=== PATIENT | male | born 1930 | race African-American/Black ===

== ENCOUNTER 2019-03-13 10:56 | Inpatient (IN) | payer OTHER ==
--- NOTE | 2019-03-13 11:44 | PDOC ---
Attending Attestation - Resident Resident Name: Lissette Ramos - ED Attending Attestation I have performed the following: I have examined & evaluated the patient, The case was reviewed & discussed with the resident, I agree w/resident's findings & plan, Exceptions are as noted - Medical Decision Making 03/13/19 11:44 I, Dr. Tyra Menendez, DO, attest that this document has been prepared under my direction and personally reviewed by me in its entirety. I further attest, that it accurately reflects all work, treatment, procedures and medical decision -making performed by me.
[2019-03-13 11:49] VITALS: BMI 25.9
[2019-03-13] MEDS ORDERED: SODIUM CHLORIDE 1,000 ML IV STA ×2 (11:52→13:28)
[2019-03-13 12:39] LABS: BASO % 0.8 % (0-2.0); EOS % 0.8 % (0-4.5); HEMATOCRIT 35.3 % (35.4-49); HEMOGLOBIN 11.1 GM/dL (11.7-16.9); LYMPH % 15.1 % (8-40); MCH 25.1 pg (25.7-33.7); MCHC 31.3 g/dl (32.0-35.9); MEAN CELL VOLUME 80.2 fl (80-96); MEAN PLT VOLUME 8.5 fl (7.5-11.1); MONO % 10.2 % (3.8-10.2); NEUT % 73.1 % (42.8-82.8); PLATELET COUNT 366 K/MM3 (134-434); WHITE BLOOD COUNT 7.6 K/mm3 (4.0-10.0)
--- NOTE | 2019-03-13 12:39 | PDOC ---
History of Present Illness - General Chief Complaint: Weakness Stated Complaint: Weakness Time Seen by Provider: 03/13/19 11:15 History Source: Patient, Care Provider Exam Limitations: Other (poor historian) - History of Present Illness Initial Comments: 03/13/19 12:33 *pt is poor historian. History obtained by pt and home office claims examiner Pt is an 88yo M with PMH of CAD s/p Bypass, Afib (on Apixaban), CHF, Pacemaker, DM, HTN presenting to ED with complaints of blurry vision x2 x2 days and lightheadedness today. transport aide states that she went to see pt this morning, pt had breakfast and stated he was feeling lightheaded. Per aide, pt started to look pale and thought he was going to pass out, she called EMS. Pt states that he has been having blurry vision for 2 days. Denies LOC, syncope, headache, numbness/tingling, limb weakness, abdominal pain, n/v/d, bloody stools, urinary symptoms, neck pain, painful eye movements, seeing spots, dizziness. BP taken by EMS was 60s systolic. BGM at home was in the 100s. Pt given 1L NS by EMS. Pt is not feeling as lightheaded anymore. Per aide, pt is at baseline mental status hodgson and with speech. His daughter doses his medications and places it in a pill organizer. PMD: [facility] PMH: see hpi Meds: see med rec Allergies: kevin Robert (daughter) [phone] Past History - Past Medical History Allergies/Adverse Reactions: Allergies Allergy/AdvReac Type Severity Reaction Status Date / Time No Known Allergies Allergy Verified 03/13/19 11:50 Home Medications: Ambulatory Orders Apixaban [Eliquis] 5 mg PO DAILY 03/13/19 Ascorbic Acid [Vitamin C] 500 mg PO DAILY 03/13/19 Brimonidine Tartrate [Alphagan P 0.1% -] 1 drop OU HS 03/13/19 Carvedilol 12.5 mg PO BID 03/13/19 Diltiazem HCl [Cartia Xt] 120 mg PO BID 03/13/19 Docusate Sodium [Dok] 100 mg PO DAILY PRN 03/13/19 Ferrous Sulfate 325 mg PO BID 03/13/19 Folic Acid 10 gm MC DAILY 03/13/19 Insulin Lispro [Humalog] 0 unit SQ TID PRN 03/13/19 Lisinopril 5 mg PO DAILY 03/13/19 Lisinopril [Prinivil] 5 mg PO DAILY 03/13/19 Metoclopramide HCl 10 mg PO TID 03/13/19 Montelukast Sodium [Singulair] 10 mg PO HS 03/13/19 Pantoprazole Sodium 40 mg PO DAILY 03/13/19 Pregabalin [Lyrica] 100 mg PO DAILY 03/13/19 Roflumilast [Daliresp -] 500 mcg PO HS 03/13/19 Rosuvastatin [Crestor -] 10 mg PO HS 03/13/19 Sitagliptin Phosphate [Januvia] 50 mg PO DAILY 03/13/19 Torsemide 20 mg PO DAILY 03/13/19 Umeclidinium [place] [Incruse Ellipta] 62.5 mcg IH DAILY 03/13/19 hydrALAZINE HCL [Apresoline -] 25 mg PO BID 03/13/19 Cardiac Disorders: Yes COPD: No Diabetes: Yes - Surgical History Cardiac Surgery: Yes - Suicide/Smoking/Psychosocial Hx Smoking History: Former smoker Have you smoked in the past 12 months: No If you are a former smoker, when did you quit?: 15 years ago Information on smoking cessation initiated: No Hx Alcohol Use: No Drug/Substance Use Hx: No Review of Systems - Review of Systems Constitutional: No: Chills, Fever, Weakness HEENTM: Yes: Blurred Vision. No: Tearing, Double Vision, Tinnitus, Hearing Loss , Difficulty Swallowing Respiratory: No: Cough, Shortness of Breath Cardiac (ROS): Yes: Lightheadedness. No: Chest Pain, Palpitations, Syncope ABD/GI: No: Constipated, Diarrhea, Nausea, Rectal Bleeding, Vomiting, Tarry Stools : No: Burning, Dysuria, Flank Pain, Hematuria Musculoskeletal: No: Back Pain, Joint Pain, Neck Pain Integumentary: No: Symptoms Reported Neurological: No: Headache, Numbness, Paresthesia, Tingling, Tremors, Weakness, Ataxia *Physical Exam - Vital Signs Last Vital Signs Temp Pulse Resp BP Pulse Ox 97.4 F L 64 18 72/48 L 94 L 03/13/19 11:22 03/13/19 11:00 03/13/19 11:00 03/13/19 11:00 03/13/19 11:22 - Physical Exam General Appearance: Yes: Nourished, Appropriately Dressed. No: Apparent Distress HEENT: positive: EOMI, [place]FF[place], Normal ENT Inspection Neck: positive: Trachea midline, Supple. negative: Lymphadenopathy (R), Lymphadenopathy (L) Respiratory/Chest: positive: Lungs Clear, Normal Breath Sounds. negative: Crackles, Rhonchi, Wheezing Cardiovascular: positive: Regular Rhythm, Regular Rate, S1, S2. negative: Edema , JVD, Murmur Vascular Pulses: Carotid (R): 2+, Carotid (L): 2+, Dorsalis-Pedis (R): 2+, Doralis-Pedis (L): 2+ Gastrointestinal/Abdominal: positive: Normal Bowel Sounds, Soft. negative: Tender Musculoskeletal: negative: CVA Tenderness Extremity: positive: Normal Capillary Refill. negative: Pedal Edema, Swelling Integumentary: positive: Normal Color, Dry, Warm Neurologic: positive: career representative II-XII NML intact, Fully Oriented, Alert, Normal Mood/ Affect, Normal Response, Motor Strength 03/27 ED Treatment Course - LABORATORY CBC & Chemistry Diagram: 03/13/19 18:13 03/13/19 18:13 - RADIOLOGY Radiology Studies Ordered: Category Date Time Status HEAD CT WITHOUT CONTRAST [CT] Stat CT Scan 03/13/19 11:51 Ordered CHEST X-RAY PORTABLE* [RAD] Stat Radiology 03/13/19 11:34 Completed Medical Decision Making - Medical Decision Making 03/13/19 12:39 Pt is an 88yo M with PMH of CAD s/p Bypass, Afib (on Apixaban), CHF, Pacemaker, DM, HTN presenting to ED with complaints of blurry vision x2 x2 days and lightheadedness today. transport aide states that she went to see pt this morning, pt had breakfast and stated he was feeling lightheaded. Per aide, pt started to look pale and thought he was going to pass out, she called EMS. Pt states that he has been having blurry vision for 2 days. Denies LOC, syncope, headache, numbness/tingling, limb weakness, abdominal pain, n/v/d, bloody stools, urinary symptoms, neck pain, painful eye movements, seeing spots, dizziness. BP taken by EMS was 60s systolic. BGM at home was in the 100s. Pt given 1L NS by EMS. Pt is not feeling as lightheaded anymore. Per aide, pt is at baseline mental status hodgson and with speech. His daughter in law doses his medications and places it in a pill organizer. Vitals: hypotensive (70s/40s), normocardic, afebrile, saturating well on RA PE: appears comfortable, lungs cta, normal heart sounds, AOx3, no neurological deficits Ddx includes but not limited to shock (infectious v. hypovolemic v. cardiogenic) , medication interactions/overdose/side effect, metabolic/electrolyte abnormality -sepsis w/u -iv fluids -ct head, ekg, cxr cxr: no acute pathology ekg: paced rhythm, no jordana or depressions, underlying afib labs: significant for cr 2.7 (do not have baseline to compare to). All other labs wnl. bp increased to 90s systolic. Will give another L of fluids. No signs of fluid overload. -urine lytes added. CT head: no acute pathology due to hypotension and deni, will admit pt to hospitalist. *DC/Admit/Observation/Transfer Diagnosis at time of Disposition: DENI (acute kidney injury) Hypotension Qualifiers: Hypotension type: unspecified hypotension type Qualified Code(s): I95.9 - Hypotension, unspecified - Discharge Dispostion Decision to Admit order: Yes - Referrals - Patient Instructions - Post Discharge Activity
[2019-03-13 12:46] LABS: VENOUS PC02 51.4 mmHg (41-51); VENOUS PH 7.36 (7.31-7.41); VENOUS PO2 36.2 mmHg (30-40)
--- NOTE | 2019-03-13 12:55 | EKG ---
Test Reason : Blood Pressure : / mmHG Vent. Rate : 060 BPM Atrial Rate : 326 BPM P-R Int : 000 ms QRS Dur : 196 ms QT Int : 490 ms P-R-T Axes : 000 -64 069 degrees QTc Int : 490 ms Ventricular-paced rhythm ABNORMAL ECG Confirmed by MD GEOVANNI, LUIS ARMANDO ([id number]) on 03/13/2019 12:55:42 PM Referred By: Confirmed By:LUIS ARMANDO GALARZA MD
[2019-03-13 13:03] LABS: INR 1.74 (0.83-1.09); PROTHROMBIN TIME (PATIENT) 20.6 SEC (9.7-13.0)
[2019-03-13 13:05] LABS: ALBUMIN 2.4 g/dl (3.4-5.0); ALK PHOS 82 U/L (45-117); ANION GAP 5 MMOL/L (8-16); BILIRUBIN,TOTAL 0.3 mg/dL (0.2-1); BLOOD UREA NITROGEN 55 mg/dL (7-18); CALCIUM 8.2 mg/dL (8.5-10.1); CHLORIDE 105 mmol/L (98-107); CO2 29 mmol/L (21-32); CREATININE 2.7 mg/dL (0.55-1.3); GLUCOSE,RANDOM 138 mg/dL (74-106); MAGNESIUM 2.1 mg/dL (1.8-2.4); SGOT/AST 13 U/L (15-37); SGPT/ALT 8 U/L (13-61); SODIUM 139 mmol/L (136-145); TOT PROT 6.5 g/dl (6.4-8.2)
[2019-03-13 13:06] LABS: ACTIVATED PTT 39.9 SECONDS (25.2-36.5)
--- NOTE | 2019-03-13 14:04 | PDOC ---
Documentation entered by Jo Ann Bal SCRIBE, acting as scribe for Tyra Menendez DO. Tyra Menendez DO: This documentation has been prepared by the Valeriano cervantes Daisy, SCRIBE, under my direction and personally reviewed by me in its entirety. I confirm that the documentation accurately reflects all work, treatment, procedures, and medical decision making performed by me. Attending Attestation - Resident Resident Name: Lissette Ramos - ED Attending Attestation I have performed the following: I have examined & evaluated the patient, The case was reviewed & discussed with the resident, I agree w/resident's findings & plan - HPI HPI: 03/13/19 12:25 The patient is a 88 YOM with PMH of afib, CHF, CAD, bypass, HTN, DM, and s/p pacemaker who presents to the ED from home with blurred vision and lightheadedness for the past 2 days. Family member makes his pill box every week, which he takes on his own. He is normally seen at [facility]. Patient arrived to the ED hypotensive to the 70s/40s. He states he has a bowel movement every week, which is normal for him. Patient is a poor historian. - Physicial Exam PE: 03/13/19 12:31 ADULT PHYSICAL EXAM Constitutional: awake, alert, knows location; home health aid at bedside Cardiovascular: Regular rate. Regular rhythm. S1, S2 regular. Distal pulses are 2+ and symmetric. (+) left chest wall with a pacemaker Pulmonary/Chest: No evidence of respiratory distress. Clear to auscultation bilaterally No wheezing, rales or rhonchi. Abdominal: Soft and non-distended. There is no tenderness. No rebound, guarding or rigidity. No organomegaly. No palpable masses. Good bowel sounds. Musculoskeletal: No edema. Full range of motion in all extremities. Skin: Skin is warm and dry. Neurological: (+) garbled speech, stuttering speech at baseline. no focal deficits. - Medical Decision Making 03/13/19 12:48 I, Dr. Tyra Menendez DO, attest that this document has been prepared under my direction and personally reviewed by me in its entirety. I further attest, that it accurately reflects all work, treatment, procedures and medical decision -making performed by me. 03/13/19 12:48 a/p: 88yo male biba from home for eval of hypotension, lightheadedness, and blurred vision -bp low at home and in the ED -pt denies change in meds, pt states meds in a pill box and he takes his pills as they are set -pt normally goes to [facility] -pt denies f/c/cp/sob/abd pain/n/v/d/dysuria -pt with pacer, neuro intact other than garbled speech which the home health aide states is normal and decreased vision b/l -lightheaded feeling improved after 1L ivf hydration given by medics -concern for hyptoension, will send labs, cultures (however no symptoms for infection), lactate -ekg, head ct, ua -will continue ivf hydration -bedside ultrasound show decreased EF, no pericardial effusion, no b lines in apex of lungs, pacer wire to RV -will continue to monitor 03/13/19 14:04 resident discussed the case with REX who accepts pt to service Heart Score/ECG Review - ECG Intrepretation Comment:: 03/13/19 12:52 paced at 60, underlying afib, no acute changes
[2019-03-13 14:11] LABS: EPI CELLS 1.9 /HPF (0-5/HPF); URINE APPEARANCE CLOUDY; URINE BACTERIA 0.8 /hpf (NEGATIVE); URINE BILIRUBIN NEGATIVE (NEGATIVE); URINE CASTS 23 /lpf (0-8); URINE COLOR YELLOW; URINE GLUCOSE (UA) NEGATIVE (NEGATIVE); URINE KETONE TRACE (NEGATIVE); URINE LEUK ESTERASE TRACE (NEGATIVE); URINE NITRITE NEGATIVE (NEGATIVE); URINE PROTEIN NEGATIVE (NEGATIVE); URINE RBC 360 /hpf (0-4); URINE UROBILINOGEN 0.2 mg/dL (0.2-1.0); URINE WBC 1 /hpf (0-5)
--- NOTE | 2019-03-13 16:59 | HP ---
Admitting History and Physical - Primary Care Physician PCP: Dr. Shanks - Admission Chief Complaint: Feeling lightheaded with vision changes over past 5 days History of Present Illness: Patient is an 88 yo M with PMHx of COPD, CHF w/ unclear EF, s/p PPM, Afib on Eliquis, CAD s/p CABG ~ 10 yrs ago at [facility], IDDM c/b gastroparesis & neuropathy , HTN, & prostate issues followed by Dr. Valles for which he receives monthly injections with unclear medication(? zoladex) who presents after feeling that he has been having some feeling of lightheadedness & vision changes over the past 5 days. Per pt & verified by family at bedside pt typically follows at [facility] outpt clinic, last seen post [facility] about 1 month ago @ [facility] for epistaxis which was attributed to eliquis and pt had been discharged to a SNF/ inpt rehab to improve gait/ mobility and then returned home 2 weeks ago where he lives with & has daily INTERMISSION COORDINATOR services. Pt reported to be back to baseline health until about 4-5 days ago he began reporting some blurry vision, not improved w/ use of his prescription glasses as well as feeling of being lightheaded. Pt had resumed use of all regular medicaitons inlcuding elqiuis BID though did not have any abnormal bruising or bleeding. He otherwise reports no fevers, chills, N/V/D, has variable appetite but no significant weight loss & per family had very good appetite & nutrition intake while at inpt rehab 3 weeks ago. Pt reports taking all his meds this morning prior to being brought by EMS to ED and denies any forgetfullness, focal weakness, sensory loss in extremities, aphasia, dysphagia and no falls, head trauma or pain in eyes though has persistent feeling of blurred vision. Per review of med list pt is on 4 anti HTN meds + torsemide diuretic daily and is on several meds for control of his COPD, attributed to remote hx of smoking tobacco. Pt reports having recieved flu vaccine this year and got Pneumovax in 2010. Per family home glucose has been largely well controlled in past 2 weeks < 200 and at time of interview in ED pt reportedly appears to be at his baseline mentation status. ON arrival to ED via EMS pt was noted to be hypotensive to 60/40's and 70's/40' s on initial ED measurement, given 2 L of IV bolus, not improved to ~ 90/60mmhg is ventricularly paced by PPM and spo2 ~ 88-90% on RA. History Source: Patient, Family Member - Past Medical History Cardiovascular: Yes: AFIB, CAD, CHF, HTN, Hyperlipdemia Pulmonary: Yes: COPD Gastrointestinal: Yes: Other (gastroparesis) Renal/: Yes: Other (unclear prostate disease ? BPH vs prostate CA- follows with Dr. Valles) Endocrine: Yes: Diabetes Mellitus (complicated by gastroparesis & neuropathy) - Past Surgical History Past Surgical History: Yes: CABG - Smoking History Smoking history: Former smoker Have you smoked in the past 12 months: No If you are a former smoker, when did you quit?: 15 years ago - Alcohol/Substance Use Hx Alcohol Use: No History of Substance Use: reports: None - Social History Usual Living Arrangement: Yes: Alone (as Home health aid from 9-4:30PM on weekdays & 9-2PM on weekends), With Spouse (also has home jm aid) ADL: Support Services Occupation: retired History of Recent Travel: No Other Social History: ambulates w/ aid of rolling walker Home Medications - Allergies Allergies/Adverse Reactions: Allergies Allergy/AdvReac Type Severity Reaction Status Date / Time No Known Allergies Allergy Verified 03/13/19 11:50 - Home Medications Home Medications: Ambulatory Orders Apixaban [Eliquis] 5 mg PO DAILY 03/13/19 Ascorbic Acid [Vitamin C] 500 mg PO DAILY 03/13/19 Brimonidine Tartrate [Alphagan P 0.1% -] 1 drop OU HS 03/13/19 Carvedilol 12.5 mg PO BID 03/13/19 Diltiazem HCl [Cartia Xt] 120 mg PO BID 03/13/19 Docusate Sodium [Dok] 100 mg PO DAILY PRN 03/13/19 Ferrous Sulfate 325 mg PO BID 03/13/19 Folic Acid 10 gm MC DAILY 03/13/19 Insulin Lispro [Humalog] 0 unit SQ TID PRN 03/13/19 Lisinopril 5 mg PO DAILY 03/13/19 Lisinopril [Prinivil] 5 mg PO DAILY 03/13/19 Metoclopramide HCl 10 mg PO TID 03/13/19 Montelukast Sodium [Singulair] 10 mg PO HS 03/13/19 Pantoprazole Sodium 40 mg PO DAILY 03/13/19 Pregabalin [Lyrica] 100 mg PO DAILY 03/13/19 Roflumilast [Daliresp -] 500 mcg PO HS 03/13/19 Rosuvastatin [Crestor -] 10 mg PO HS 03/13/19 Sitagliptin Phosphate [Januvia] 50 mg PO DAILY 03/13/19 Torsemide 20 mg PO DAILY 03/13/19 Umeclidinium [place] [Incruse Ellipta] 62.5 mcg IH DAILY 03/13/19 hydrALAZINE HCL [Apresoline -] 25 mg PO BID 03/13/19 Family Disease History - Family Disease History Family History: Unremarkable Review of Systems - Review of Systems Constitutional: reports: Lethargy Eyes: reports: Blurred Vision, Double Vision HENT: reports: No Symptoms Neck: reports: No Symptoms Cardiovascular: reports: No Symptoms Respiratory: reports: No Symptoms Gastrointestinal: reports: No Symptoms Genitourinary: reports: No Symptoms Neurological: reports: No Symptoms Endocrine: reports: No Symptoms Hematology/Lymphatic: reports: No Symptoms Psychiatric: reports: No Symptoms Physical Examination Vital Signs: Vital Signs Temperature 97.4 F L 03/13/19 11:22 Pulse Rate 69 03/13/19 13:20 Respiratory Rate 17 03/13/19 13:20 Blood Pressure 95/60 03/13/19 13:20 O2 Sat by Pulse Oximetry (%) 94 L 03/13/19 11:22 Findings/Remarks: Gen: pt is a pleasant elderly male in no distress, breathing comfrotably on room air and speaking in full sentences, AAox3 HEENT: EOMI, PERRLA, MMM, no scleral pallor or icterus, no sinus tenderness, no TMJ tenderness, no pain w/ eye movement or light shining Neck: no JVD, no cervical LAD Chest: + healed sternotomy scar, PPM in place,no palpable effusions, hematoma CVS: Reg, not tachy, s1 &S2 nrml, no murmurs or rubs CTA b/l: distant breath sounds heard throughout, no wheezes, rales or rhonchi Abd: Soft, NT, ND, normoactive BS, no palpable hepatomegaly, abd bruits or suprapubic mass Ext: warm, well perfsued, 2+ radial &DP pulses b/l no LE edema Skin: slightly dry but not iceteric, no rashes or bruising noted Labs: CBC, BMP 03/13/19 12:27 03/13/19 12:27 Imaging - Results Chest X-ray: Report Reviewed EKG: Report Reviewed Problem List - Problems (1) Heart failure Assessment/Plan: - pt wtih PMHx of CHF presumed systolic w reduced EF but no prior cardiology records available, pt s/p PPM & is vernacularly paced - on volume exam does not appear hypervolemic - would place on tele monitoring given extensive cardiac hx and obtain additional outpt records when Dr. Acosta- supervisor airplane flight attendant office is open this week -would obtain formal Echo - given lack of clear volume overload with initial hypotension would hold antiHTN meds for now and resume gradually, startign likely w/ carvedilol though at reduced dose(liekly 3.125 BID) and titrate up - given hx of HF would proceed w/ gentle IVF challenge to avoid precipiting pulm edema/ HF exacerbation - hold NATHALIA-I for now given elevated SCr & hold torsemide - place on cardiac, low sodium diet Code(s): I50.9 - HEART FAILURE, UNSPECIFIED (2) COPD (chronic obstructive pulmonary disease) Assessment/Plan: - pt with significant COPD hx of mutliple home agents including: Incruse ellipta 62.5mg, singulair 10mg, Daliresp(PDE-4 inhibitor), suspected for pulm HTN -keep nasal cannula on standby and maintain goal spo2 btween 88-92% - resume singulair 10mg, place on PRN duo nebs - pt will require NF daliresp & ellipta Code(s): J44.9 - CHRONIC OBSTRUCTIVE PULMONARY DISEASE, UNSPECIFIED (3) BPH NOS w/o ur obs/LUTS Assessment/Plan: - will need to obtain additional info from outpt urologist Dr Valles about Rx and monthly injections - monitor UOP, f/up on UA and get renal/bladder US to r/o obstructive cause of elevated SCr w/ unclear baseline Code(s): N40.0 - BENIGN PROSTATIC HYPERPLASIA WITHOUT LOWER URINRY TRACT SYMP (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 Man Code(s): E11.8 - TYPE 2 DIABETES MELLITUS WITH UNSPECIFIED COMPLICATIONS; Z79.4 - FPC (CURRENT) USE OF INSULIN (5) Coronary arteriosclerosis after coronary artery bypass grafting Assessment/Plan: - pt with hx of CAD s/p prior CABG, will need to obtain outside cards records during the week from Dr. Acosta ([phone]) - c/w eliquis but at 2.5mg BID for now, pt not on home ASA per family & med list - 1st set of troponins in ED non elevated, low suspicion for ACS event but will trend serially to definitively rule out given hypotension - c/w rosuvastatin 10mg qhs Code(s): I25.810 - ATHEROSCLEROSIS OF CABG W/O ANGINA PECTORIS (6) Dyslipidemia Assessment/Plan: - check lipid panel & continue rosuvastatin 10mg qhS Code(s): E78.5 - HYPERLIPIDEMIA, UNSPECIFIED (7) Iron deficiency anemia Assessment/Plan: - pt on home iron, presently Hgb is at target - repeat iron studies/ ferritin and determine resumption/continuation of PO iron Code(s): D50.9 - IRON DEFICIENCY ANEMIA, UNSPECIFIED (8) DENI (acute kidney injury) Assessment/Plan: - pt w/ unclear baslien SCr, was 1.1 in 2010, hx of prostate disease raises concern for obstruction though with noted hypotension hemodynamic insult or ischemic ATN high on differential - will need to obtain records of recent labs from [facility] ([phone] ) when re-opens thursday for baseline renal function determination - will hold NATHALIA-I and torsemide at this time and monitor volume status including lungs closely after IVF challenge for management of hypotension - maintain goal MAP > 65 for renal perfusion - avoid NSAIDs, and IV contrast - dose meds for CrCl <25 - UA w/ macro & microscopic hematuria, no significant leukocytosis, ? related to prostate disease vs glomerulonephritis - ordered renal/bladder US to further assess for any anatomic abnormalities, r/ o pyelo, nephrolithiasis, cystitis, hydronephrosis - will send VitD, PTH, phos, iron, ferritin- indirect markers that could indicate pre-existing CKD Code(s): N17.9 - ACUTE KIDNEY FAILURE, UNSPECIFIED (9) Hypotension Assessment/Plan: - pt presently appears euvolemic, hypotensive thus potentially related to over medication given use of 5 anti-HTN/vasoactive agents including diuretics - initial lactate not markedly elevated - pt w/ no elevation of WBC or fevers, f/up on BCx & UCx drawn in ED but no present indicaiton for empiric Abx, though low threshold in event of fever spike - pt s/p 2L IVF will monitor BPs closely, goal MAP btween 65-75 - obtain echo to assess for e/o severe wall motion abnormalities to explain hypotension Code(s): I95.9 - HYPOTENSION, UNSPECIFIED Qualifiers: Hypotension type: unspecified hypotension type Qualified Code(s): I95.9 - Hypotension, unspecified (10) Double vision Assessment/Plan: -pt with no obvious visual field deficits, no pain with eye movement to suggest acute thrombosis and no reported abnromalities per CTH - will place consult for formal ophtho eval - pt uses alphagan 0.1% drops at home, will resume Code(s): H53.2 - DIPLOPIA (11) Prophylactic measure Assessment/Plan: - pt on systemic AC w/ eliquis Code(s): Z29.9 - ENCOUNTER FOR PROPHYLACTIC MEASURES, UNSPECIFIED
[2019-03-13] MEDS ORDERED: HEPARIN NA (PORCINE) 5,000 UNITS/ML 1ML VIAL SQ SCH (18:00)
[2019-03-13 18:28] LABS: EOS % 0.8 % (0-4.5); HEMATOCRIT 38.8 % (35.4-49); LYMPH % 20.4 % (8-40); MCH 25.1 pg (25.7-33.7); MEAN CELL VOLUME 80.9 fl (80-96); MEAN PLT VOLUME 8.3 fl (7.5-11.1); MONO % 9.9 % (3.8-10.2); NEUT % 67.9 % (42.8-82.8); PLATELET COUNT 375 K/MM3 (134-434); RBC 4.79 M/mm3 (4.00-5.60); RDW 18.1 % (11.9-15.9); WHITE BLOOD COUNT 8.6 K/mm3 (4.0-10.0)
[2019-03-13 19:02] LABS: ALBUMIN 2.6 g/dl (3.4-5.0); ALK PHOS 93 U/L (45-117); ANION GAP 6 MMOL/L (8-16); BILIRUBIN,TOTAL 0.2 mg/dL (0.2-1); BLOOD UREA NITROGEN 51 mg/dL (7-18); CALCIUM 8.4 mg/dL (8.5-10.1); CHLORIDE 107 mmol/L (98-107); CO2 29 mmol/L (21-32); CREATININE 2.2 mg/dL (0.55-1.3); GLUCOSE,RANDOM 101 mg/dL (74-106); MAGNESIUM 2.4 mg/dL (1.8-2.4); PHOSPHOROUS 4.2 mg/dL (2.5-4.9); POTASSIUM 4.4 mmol/L (3.5-5.1); SGOT/AST 9 U/L (15-37); SGPT/ALT 10 U/L (13-61); SODIUM 142 mmol/L (136-145); TOT PROT 7.1 g/dl (6.4-8.2)
[2019-03-13] MEDS ORDERED: HEPARIN NA (PORCINE) 5,000 UNITS/ML 1ML VIAL ONE (19:07)
[2019-03-13] MEDS ORDERED: PT OWN MED DRAWER 7, Y5N ONE (22:07)
[2019-03-13] MEDS: PREGABALIN 25 MG CAPSULE PO SCH (22:38)
[2019-03-13] MEDS: METOCLOPRAMIDE HCL 10 MG TABLET (FP) PO SCH (22:38)
[2019-03-13] MEDS: ROSUVASTATIN CA 10 MG TABLET (FP) PO SCH (22:38)
[2019-03-13] MEDS: MONTELUKAST NA 10 MG TABLET PO SCH (22:38)
[2019-03-13] MEDS: APIXABAN 2.5 MG TABLET PO SCH (22:38)
[2019-03-13] MEDS: BRIMONIDINE TARTRATE 0.1% OPHTHALMIC 5 ML BOTTLE OU SCH (22:45)
[2019-03-14 02:30] LABS: EPI CELLS 0.4 /HPF (0-5/HPF); URINE APPEARANCE CLOUDY; URINE BACTERIA 0.8 /hpf (NEGATIVE); URINE BILIRUBIN NEGATIVE (NEGATIVE); URINE CASTS 1 /lpf (0-8); URINE COLOR ORANGE; URINE GLUCOSE (UA) NEGATIVE (NEGATIVE); URINE KETONE NEGATIVE (NEGATIVE); URINE LEUK ESTERASE TRACE (NEGATIVE); URINE NITRITE NEGATIVE (NEGATIVE); URINE PROTEIN TRACE (NEGATIVE); URINE RBC 1382 /hpf (0-4); URINE UROBILINOGEN 0.2 mg/dL (0.2-1.0); URINE WBC 6 /hpf (0-5)
[2019-03-14] MEDS: ACETAMINOPHEN 500 MG TABLET (FP) PO PRN ×2 (04:25→23:31)
[2019-03-14] MEDS: INSULIN SLIDING SCALE (NOVOLOG) 1 VIAL SQ SCH ×2 (06:46→16:08)
[2019-03-14] MEDS: METOCLOPRAMIDE HCL 10 MG TABLET (FP) PO SCH ×4 (06:46→21:43)
[2019-03-14 06:48] LABS: INR 1.44 (0.83-1.09); PROTHROMBIN TIME (PATIENT) 17.1 SEC (9.7-13.0)
[2019-03-14 06:51] LABS: ACTIVATED PTT 38.9 SECONDS (25.2-36.5)
[2019-03-14 07:14] LABS: N-TERMINAL BNP 1444.7 pg/ml (5-450)
[2019-03-14] MEDS ORDERED: PT OWN MED DRAWER 7, Y5N ONE ×2 (09:07→11:35)
[2019-03-14] MEDS ORDERED: PANTOPRAZOLE SOD 40 MG SUSPENSION PACKET PO SCH (10:00)
[2019-03-14] MEDS: BRIMONIDINE TARTRATE 0.1% OPHTHALMIC 5 ML BOTTLE OU SCH (11:01)
[2019-03-14] MEDS: ASCORBIC ACID 500 MG TABLET (FP) PO SCH (11:02)
[2019-03-14] MEDS: FOLIC ACID 1 MG TABLET (FP) PO SCH (11:02)
[2019-03-14] MEDS: APIXABAN 2.5 MG TABLET PO SCH ×2 (11:02→21:44)
[2019-03-14] MEDS: UMECLIDINIUM/VILANTEROL (ANORO) 62.5/25 MCG INHALER IH SCH (11:48)
[2019-03-14 13:02] LABS: BASO % 1.2 % (0-2.0); EOS % 0.7 % (0-4.5); HEMATOCRIT 38.6 % (35.4-49); LYMPH % 16.2 % (8-40); MCH 25.1 pg (25.7-33.7); MCHC 31.1 g/dl (32.0-35.9); MEAN CELL VOLUME 80.9 fl (80-96); MEAN PLT VOLUME 8.5 fl (7.5-11.1); MONO % 8.7 % (3.8-10.2); NEUT % 73.2 % (42.8-82.8); PLATELET COUNT 410 K/MM3 (134-434); RBC 4.78 M/mm3 (4.00-5.60); RDW 17.9 % (11.9-15.9); WHITE BLOOD COUNT 6.8 K/mm3 (4.0-10.0)
[2019-03-14] MEDS: PANTOPRAZOLE 40 MG TABLET (FP) PO SCH (13:20)
[2019-03-14 13:35] LABS: ALBUMIN 2.6 g/dl (3.4-5.0); ALK PHOS 76 U/L (45-117); ANION GAP 6 MMOL/L (8-16); BILIRUBIN,TOTAL 0.5 mg/dL (0.2-1); BLOOD UREA NITROGEN 40 mg/dL (7-18); CALCIUM 9.1 mg/dL (8.5-10.1); CHLORIDE 108 mmol/L (98-107); CO2 29 mmol/L (21-32); CREATININE 1.4 mg/dL (0.55-1.3); GLUCOSE,RANDOM 154 mg/dL (74-106); MAGNESIUM 2.2 mg/dL (1.8-2.4); POTASSIUM 4.6 mmol/L (3.5-5.1); SGOT/AST 7 U/L (15-37); SGPT/ALT 9 U/L (13-61); SODIUM 144 mmol/L (136-145); TOT PROT 7.1 g/dl (6.4-8.2)
--- NOTE | 2019-03-14 14:19 | EKG ---
Test Reason : Blood Pressure : / mmHG Vent. Rate : 088 BPM Atrial Rate : 300 BPM P-R Int : 000 ms QRS Dur : 112 ms QT Int : 350 ms P-R-T Axes : 000 -55 007 degrees QTc Int : 423 ms ATRIAL FIBRILLATION LEFT ANTERIOR FASCICULAR BLOCK SEPTAL INFARCT , AGE UNDETERMINED ABNORMAL ECG WHEN COMPARED WITH ECG OF 13-MAR-2019 12:02, ATRIAL FIBRILLATION HAS REPLACED ELECTRONIC VENTRICULAR PACEMAKER Confirmed by MAURISIO HUMPHREYS, ASUNCION ([id number]) on 03/14/2019 2:19:19 PM Referred By: CRUZ MCNULTY DR Confirmed By:ASUNCION FORDE MD
--- NOTE | 2019-03-14 16:11 | PN ---
Physical Exam: SUBJECTIVE: Patient seen and examined at the bedside. sitting in chair. family was not at the bedside. OBJECTIVE: Vital Signs Period Temp Pulse Resp BP Sys/Farmer Pulse Ox Last 24 Hr 97.7 F-98.6 F 85-89 18-20 112-130/62-69 94-96 GENERAL: The patient is awake, alert, in no acute distress. HEAD: Normal with no signs of trauma. EYES: PERRL, extraocular movements intact, sclera anicteric, conjunctiva clear. No ptosis. ENT: Ears normal, nares patent, oropharynx clear without exudates NECK: Trachea midline, full range of motion, supple. LUNGS: Breath sounds equal, clear to auscultation bilaterally HEART: paced rhythm ABDOMEN: Soft, nontender, nondistended, normoactive bowel sounds, no guarding EXTREMITIES: no edema. NEUROLOGICAL: garbled speech,stuttering speech (per admission note, speech at baseline) gait not observed. PSYCH: Normal mood, normal affect. SKIN: Warm, dry, normal turgor, no rashes or lesions noted Laboratory Results - last 24 hr 03/13/19 03/13/19 03/14/19 18:13 18:13 01:17 WBC 8.6 RBC 4.79 Hgb 12.0 Hct 38.8 MCV 80.9 MCH 25.1 L MCHC 31.0 L RDW 18.1 H Plt Count 375 MPV 8.3 Absolute Neuts (auto) 5.8 Neutrophils % 67.9 Lymphocytes % 20.4 D Monocytes % 9.9 Eosinophils % 0.8 Basophils % 1.0 Nucleated RBC % 0 PT with INR INR PTT (Actin FS) Sodium 142 Potassium 4.4 Chloride 107 Carbon Dioxide 29 Anion Gap 6 L BUN 51 H Creatinine 2.2 H Creat Clearance w eGFR 28.39 POC Glucometer Random Glucose 101 Calcium 8.4 L Phosphorus 4.2 Magnesium 2.4 Total Bilirubin 0.2 AST 9 L ALT 10 L Alkaline Phosphatase 93 Troponin I < 0.02 B-Natriuretic Peptide Total Protein 7.1 Albumin 2.6 L TSH Resin T3 Uptake Urine Color [place] Urine Appearance Cloudy Urine pH 5.0 Ur Specific [place] 1.012 Urine Protein Trace Urine Glucose (UA) Negative Urine Ketones Negative Urine Blood 3+ H Urine Nitrite Negative Urine Bilirubin Negative Urine Urobilinogen 0.2 Ur Leukocyte Esterase Trace Urine WBC (Auto) 6 Urine RBC (Auto) 1382 Urine Casts (Auto) 1 U Epithel Cells (Auto) 0.4 Urine Bacteria (Auto) 0.8 03/14/19 03/14/19 03/14/19 05:30 05:30 06:44 WBC RBC Hgb Hct MCV MCH MCHC RDW Plt Count MPV Absolute Neuts (auto) Neutrophils % Lymphocytes % Monocytes % Eosinophils % Basophils % Nucleated RBC % PT with INR 17.10 H INR 1.44 H PTT (Actin FS) 38.9 H Sodium Potassium Chloride Carbon Dioxide Anion Gap BUN Creatinine Creat Clearance w eGFR POC Glucometer 97 Random Glucose Calcium Phosphorus Magnesium Total Bilirubin AST ALT Alkaline Phosphatase Troponin I B-Natriuretic Peptide 1444.7 H Total Protein Albumin TSH 0.41 D Resin T3 Uptake 40.9 H Urine Color Urine Appearance Urine pH Ur Specific [place] Urine Protein Urine Glucose (UA) Urine Ketones Urine Blood Urine Nitrite Urine Bilirubin Urine Urobilinogen Ur Leukocyte Esterase Urine WBC (Auto) Urine RBC (Auto) Urine Casts (Auto) U Epithel Cells (Auto) Urine Bacteria (Auto) 03/14/19 03/14/19 03/14/19 11:53 12:43 12:43 WBC 6.8 RBC 4.78 Hgb 12.0 Hct 38.6 MCV 80.9 MCH 25.1 L MCHC 31.1 L RDW 17.9 H Plt Count 410 MPV 8.5 Absolute Neuts (auto) 5.0 Neutrophils % 73.2 Lymphocytes % 16.2 D Monocytes % 8.7 Eosinophils % 0.7 Basophils % 1.2 Nucleated RBC % 0 PT with INR INR PTT (Actin FS) Sodium 144 Potassium 4.6 Chloride 108 H Carbon Dioxide 29 Anion Gap 6 L BUN 40 H Creatinine 1.4 H Creat Clearance w eGFR 47.83 POC Glucometer 112 Random Glucose 154 H Calcium 9.1 Phosphorus Magnesium 2.2 Total Bilirubin 0.5 AST 7 L ALT 9 L Alkaline Phosphatase 76 Troponin I B-Natriuretic Peptide Total Protein 7.1 Albumin 2.6 L TSH Resin T3 Uptake Urine Color Urine Appearance Urine pH Ur Specific [place] Urine Protein Urine Glucose (UA) Urine Ketones Urine Blood Urine Nitrite Urine Bilirubin Urine Urobilinogen Ur Leukocyte Esterase Urine WBC (Auto) Urine RBC (Auto) Urine Casts (Auto) U Epithel Cells (Auto) Urine Bacteria (Auto) 04/22/19 16:06 WBC RBC Hgb Hct MCV MCH MCHC RDW Plt Count MPV Absolute Neuts (auto) Neutrophils % Lymphocytes % Monocytes % Eosinophils % Basophils % Nucleated RBC % PT with INR INR PTT (Actin FS) Sodium Potassium Chloride Carbon Dioxide Anion Gap BUN Creatinine Creat Clearance w eGFR POC Glucometer 123 Random Glucose Calcium Phosphorus Magnesium Total Bilirubin AST ALT Alkaline Phosphatase Troponin I B-Natriuretic Peptide Total Protein Albumin TSH Resin T3 Uptake Urine Color Urine Appearance Urine pH Ur Specific [place] Urine Protein Urine Glucose (UA) Urine Ketones Urine Blood Urine Nitrite Urine Bilirubin Urine Urobilinogen Ur Leukocyte Esterase Urine WBC (Auto) Urine RBC (Auto) Urine Casts (Auto) U Epithel Cells (Auto) Urine Bacteria (Auto) Active Medications Generic Name Dose Route Start Last Admin Trade Name Freq PRN Reason Stop Dose Admin Acetaminophen 1,000 mg 03/14/19 03:48 03/14/19 04:25 Tylenol - PO 1,000 mg BID PRN Administration PAIN Apixaban 2.5 mg 03/13/19 22:00 03/14/19 11:02 Eliquis - PO 2.5 mg BID JULIÁN Administration Ascorbic Acid 500 mg 03/14/19 10:00 03/14/19 11:02 Vitamin C - PO 500 mg DAILY JULIÁN Administration Brimonidine Tartrate 1 drop 03/13/19 22:00 03/14/19 11:01 Alphagan P 0.1% - OU 1 drop DAILY JULIÁN Administration Folic Acid 1 mg 03/14/19 10:00 03/14/19 11:02 Folic Acid - PO 1 mg DAILY JULIÁN Administration Insulin Aspart 1 vial 03/14/19 07:00 03/14/19 16:08 Novolog Vial Sliding Scale - SQ Not Given BIDAC [facility] Protocol Metoclopramide HCl 10 mg 03/13/19 22:00 03/14/19 11:48 Reglan - PO 10 mg ACHS JULIÁN Administration Montelukast Sodium 10 mg 03/13/19 22:00 03/13/19 22:38 Singulair - PO 10 mg HS JULIÁN Administration Pantoprazole Sodium 40 mg 03/14/19 12:30 03/14/19 13:20 Protonix - PO 40 mg DAILY JULIÁN Administration Pregabalin 25 mg 03/13/19 22:00 03/13/19 22:38 Lyrica - PO 25 mg HS JULIÁN Administration Rosuvastatin Calcium 10 mg 03/13/19 22:00 04/21/19 22:38 Crestor - PO 10 mg HS JULIÁN Administration Umeclidinium/Vilanterol 1 puff 03/14/19 10:00 03/14/19 11:48 Anoro Ellipta 62.5-25 Mcg Inh IH 1 puff DAILY JULIÁN Administration ASSESSMENT/PLAN: Patient is an 88 year old male with a significant past medical history of atrial fibrillation, CHF, CAD, bypass, hypertension, diabetes, s/p pacemaker who presents to the ED from home with blurred vision and episodes of lightheadness for the past two days. Patient takes his own medications at home from a pill box prepared by his family. He arrived in the ED with hypotension 70s/40s and a creatinine of 2.7. Based on 2010 labs, patient's creatinine is ~ 1.1. In the ED he was given a liter of fluids. Imaging: head ct: no acute pathology ID: Rule out sepsis Presents with hypotension, DENI. blood and urine cultures negative, he is afebrile and wbc stable. Unlikely infectious source. Monitor labs, vitals. chest xray with atelectic changes at the bases Card: Hypotension, resolved Seen by cardiology and resumed carvedilol 6.25 bid On Crestor, Eliquis 2.5 bid ,hydralazine and torsemide Lisinopril on hold until DENI resolves. resume lisinopril once renal fxn stabilizes Patient to follow up with cardiology as an outpatient Diastolic heart failure s/p pacemaker continue telemonitoring 2/2 to extensive cardiac history cardiology consulted and following outpatient follow up with production artist recommended HLD. on crestor Pulm: COPD. not in acute exacerbation tolerating room air continue home medications Endocrine hold oral medications. on novolog ss Renal: DENI. Hold lisinopril. renal function improving Unclear baseline, but creat 1.1 in 2010 renal ultrasound Double vision No reported changes on head CT No pain with eye movement Unable to get brain mri due to pacemaker on alphagan 0.1% drops at home fen tolerating po on eliquis full code. patient under obs status Visit type - Emergency Visit Emergency Visit: Yes ED Registration Date: 03/13/19 Care time: The patient presented to the Emergency Department on the above date and was hospitalized for further evaluation of their emergent condition. - New Patient This patient is new to me today: Yes Date on this admission: 03/14/19 - Critical Care Critical Care patient: No - Discharge Referral Referred to [facility] No
--- NOTE | 2019-03-14 17:30 | ECHO ---
Name: WENDY RECINOS Exam:Adult Echocardiogram Study Date: 03/14/2019 10:20 AM Age: 88 yrs Reason For Study: hypotension,hx, Height: 71 in Weight: 186 lb BSA: 2.0 m2 MMode/2D Measurements & Calculations IVSd: 0.82 cm Ao root diam: 4.1 cm LVIDd: 5.9 cm LA dimension: 5.7 cm LVIDs: 4.0 cm ACS: 1.7 cm LVPWd: 0.90 cm IVSs: 1.2 cm LVPWs: 1.3 cm EDV(Ortega): 173.3 ml ESV(Ortega): 70.8 ml LAV (MOD-bp): 123.0 ml Doppler Measurements & Calculations MV E max michel: 112.5 cm/sec MR max michel: 459.0 cm/sec MV A max michel: 23.2 cm/sec MR max P.9 mmHg MV E/A: 4.9 TR max michel: 323.3 cm/sec Med Peak E' Michel: 3.0 cm/sec TR max P.0 mmHg Med E/e': 38.0 Lat Peak E' Michel: 2.6 cm/sec Lat E/e': 42.8 Procedure The study was technically adequate with some images being suboptimal in quality. Left Ventricle The left ventricle is moderately dilated. Left ventricular systolic function is severely reduced. Eje ction Fraction = 30-35%. Septal motion is consistent with post-operative state. Right Ventricle The right ventricle is moderately dilated. There is a pacemaker lead in the right ventricle. The righ t ventricular systolic function is moderately reduced. Atria The left atrium is moderately dilated. The right atrium is moderate to severely dilated. Mitral Valve There is mild mitral annular calcification. There is mild to moderate mitral valve thickening. There is moderate to severe mitral regurgitation. Tricuspid Valve The tricuspid valve is not well visualized, but is grossly normal. There is moderate to severe tricus pid regurgitation. There is moderate pulmonary hypertension. Right ventricular systolic pressure is eleva shawn at 50 mmhg. Aortic Valve There is mild aortic sclerosis.;. The aortic valve opens well. The aortic valve is trileaflet. No aor tic regurgitation is present. Pulmonic Valve The pulmonic valve is not well visualized. There is no pulmonic valvular regurgitation. Great Vessels Borderline aortic root dilatation. Pericardium/Pleura There is no pericardial effusion. Interpretation Summary There is no comparison study available. The left ventricle is moderately dilated. Left ventricular systolic function is severely reduced. Ejection Fraction = 30-35%. The right ventricle is moderately dilated. The right ventricular systolic function is moderately reduced. Borderline aortic root dilatation. The left atrium is moderately dilated. There is moderate to severe tricuspid regurgitation. The right atrium is moderate to severely dilated. Pepito Zamarripa MD 03/14/2019 05:29 PM
--- NOTE | 2019-03-14 18:34 | CON.CARD ---
Consult Consult Specialty:: Cardiology Referred by:: Hospitalist Medicine Reason for Consultation:: Orthostatic hypotension - History of Present Illness Chief Complaint: Light-headedness History of Present Illness: Patient is an 88 yo M with PMHx of COPD, HFrEF, s/p PPM, Afib on Eliquis, CAD s/ p CABG ~ 10 yrs ago at [facility], IDDM c/b gastroparesis & neuropathy, HTN, & prostate presented after feeling that he has been having some feeling of lightheadedness & blurry vision, found to be hypotensive to 60/40's and 70's/40' s on initial ED measurement, given 2 L of IV bolus, DENI resolving with hemodynamic stability. - History Source History Provided By: Patient Limitations to Obtaining History: No Limitations - Past Medical History Cardio/Vascular: Yes: AFIB, CAD, CHF, HTN, Hyperlipdemia Pulmonary: Yes: COPD Gastrointestinal: Yes: Other (gastroparesis) Renal/: Yes: Other (unclear prostate disease ? BPH vs prostate CA- follows with Dr. Valles) Endocrine: Yes: Diabetes Mellitus (complicated by gastroparesis & neuropathy) - Past Surgical History Past Surgical History: Yes: CABG - Alcohol/Substance Use Hx Alcohol Use: No History of Substance Use: reports: None - Smoking History Smoking history: Former smoker Have you smoked in the past 12 months: No If you are a former smoker, when did you quit?: 15 years ago - Social History ADL: Support Services Occupation: retired History of Recent Travel: No Home Medications - Allergies Allergies/Adverse Reactions: Allergies Allergy/AdvReac Type Severity Reaction Status Date / Time No Known Allergies Allergy Verified 03/13/19 11:50 - Home Medications Home Medications: Ambulatory Orders Apixaban [Eliquis] 5 mg PO DAILY 03/13/19 Ascorbic Acid [Vitamin C] 500 mg PO DAILY 03/13/19 Brimonidine Tartrate [Alphagan P 0.1% -] 1 drop OU HS 03/13/19 Carvedilol 12.5 mg PO BID 03/13/19 Diltiazem HCl [Cartia Xt] 120 mg PO BID 03/13/19 Docusate Sodium [Dok] 100 mg PO DAILY PRN 03/13/19 Ferrous Sulfate 325 mg PO BID 03/13/19 Folic Acid 10 gm MC DAILY 03/13/19 Insulin Lispro [Humalog] 0 unit SQ TID PRN 03/13/19 Lisinopril 5 mg PO DAILY 03/13/19 Lisinopril [Prinivil] 5 mg PO DAILY 03/13/19 Metoclopramide HCl 10 mg PO TID 03/13/19 Montelukast Sodium [Singulair] 10 mg PO HS 03/13/19 Pantoprazole Sodium 40 mg PO DAILY 03/13/19 Pregabalin [Lyrica] 100 mg PO DAILY 03/13/19 Roflumilast [Daliresp -] 500 mcg PO HS 03/13/19 Rosuvastatin [Crestor -] 10 mg PO HS 03/13/19 Sitagliptin Phosphate [Januvia] 50 mg PO DAILY 03/13/19 Torsemide 20 mg PO DAILY 03/13/19 Umeclidinium Inman [Incruse Ellipta] 62.5 mcg IH DAILY 03/13/19 hydrALAZINE HCL [Apresoline -] 25 mg PO BID 03/13/19 Review of Systems - Review of Systems Eyes: reports: Blurred Vision Neurological: reports: Dizziness Vital Signs: Vital Signs Temperature 98.6 F 03/14/19 14:35 Pulse Rate 89 03/14/19 14:35 Respiratory Rate 18 03/14/19 14:35 Blood Pressure 121/67 03/14/19 14:35 O2 Sat by Pulse Oximetry (%) 96 03/14/19 08:54 Constitutional: Yes: No Distress, Calm Neck: Yes: Supple Respiratory: Yes: Regular, CTA Bilaterally Gastrointestinal: Yes: Normal Bowel Sounds, Soft Cardiovascular: Yes: Pulse Irregular JVD: No Carotid Bruit: No Heart Sounds: Yes: S1, S2 Murmur: Yes: Systolic Murmur, Grade 2 Edema: No - Other Data Labs, Other Data: CBC, BMP 03/14/19 12:43 03/14/19 12:43 INR, PTT INR 1.44 (0.83-1.09) H 03/14/19 05:30 Troponin, BNP 03/13/19 03/14/19 18:13 05:30 Troponin I < 0.02 B-Natriuretic Peptide 1444.7 H Troponin, BNP 03/13/19 03/14/19 18:13 05:30 Troponin I < 0.02 B-Natriuretic Peptide 1444.7 H Afib @ 88 LAFB, PRWP Echo: Report Reviewed Ejection Fraction %: LVEF < 40 % Imaging - Results Chest X-ray: Report Reviewed (Silvestreasilar ATX) Cat Scan: Report Reviewed (SVID) Problem List - Problems (1) Systolic dysfunction, left ventricle Code(s): I51.9 - HEART DISEASE, UNSPECIFIED (2) DENI (acute kidney injury) Code(s): N17.9 - ACUTE KIDNEY FAILURE, UNSPECIFIED (3) COPD (chronic obstructive pulmonary disease) Code(s): J44.9 - CHRONIC OBSTRUCTIVE PULMONARY DISEASE, UNSPECIFIED Qualifiers: COPD type: unspecified COPD Qualified Code(s): J44.9 - Chronic obstructive pulmonary disease, unspecified (4) Coronary arteriosclerosis after coronary artery bypass grafting Code(s): I25.810 - ATHEROSCLEROSIS OF CABG W/O ANGINA PECTORIS (5) Dyslipidemia Code(s): E78.5 - HYPERLIPIDEMIA, UNSPECIFIED (6) Hypotension Code(s): I95.9 - HYPOTENSION, UNSPECIFIED Qualifiers: Hypotension type: hypotension due to drug Qualified Code(s): I95.2 - Hypotension due to drugs (7) Insulin dependent diabetes mellitus with complications Code(s): E11.8 - TYPE 2 DIABETES MELLITUS WITH UNSPECIFIED COMPLICATIONS; Z79.4 - USER SUPPORT ANALYST (CURRENT) USE OF INSULIN (8) Atrial fibrillation Code(s): I48.91 - UNSPECIFIED ATRIAL FIBRILLATION Qualifiers: Atrial fibrillation type: chronic Qualified Code(s): I48.2 - Chronic atrial fibrillation (9) Sick sinus syndrome Code(s): I49.5 - SICK SINUS SYNDROME (10) Pacemaker Code(s): Z95.0 - PRESENCE OF CARDIAC PACEMAKER Assessment/Plan 03/14/2019 Moderate dilated LV with severe LVEF 30-35%, RV mod dilated RV moderate decreased fxn, mod LAE, mod-severe TR, mod-severe dilated RA 1. Hypotension referable to medication effects 2. CAD s/p CABG 3. Afib sick sinus syndrome s/p PPM on Eliquis 4. 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 Hypertensive cardiomyopathy 6. COPD 7. Ischemic cardiomyopathy 8. Acute kidney injury referable to hemodynamic alterations resolving P:1. Resume carvedilol 6.25 bid as hemodynamics tolerate, continue Crestor 10 qhs, Eliquis 2.5 bid, d/c Cartia XT , hydralazine and torsemide, resume lisinopril once renal fxn stabilizes 2. BD, Singulair, Daliresp 3. Thank you for consultative opportunity, f/u with Dr. Meehan as outpatient
[2019-03-14] MEDS: MONTELUKAST NA 10 MG TABLET PO SCH (21:43)
[2019-03-14] MEDS: ROSUVASTATIN CA 10 MG TABLET (FP) PO SCH (21:43)
[2019-03-14] MEDS: CARVEDILOL 6.25 MG TABLET (FP) PO SCH (21:43)
[2019-03-14] MEDS: PREGABALIN 25 MG CAPSULE PO SCH (21:44)
[2019-03-15] MEDS ORDERED: ONDANSETRON 4 MG/2 ML VIAL IVPB ONE (02:54)
[2019-03-15] MEDS: INSULIN SLIDING SCALE (NOVOLOG) 1 VIAL SQ SCH (06:18)
[2019-03-15] MEDS: METOCLOPRAMIDE HCL 10 MG TABLET (FP) PO SCH ×2 (06:19→11:13)
[2019-03-15 08:13] LABS: BASO % 0.9 % (0-2.0); EOS % 0.9 % (0-4.5); HEMATOCRIT 36.3 % (35.4-49); HEMOGLOBIN 11.4 GM/dL (11.7-16.9); LYMPH % 16.9 % (8-40); MCH 25.5 pg (25.7-33.7); MCHC 31.5 g/dl (32.0-35.9); MEAN CELL VOLUME 80.9 fl (80-96); MEAN PLT VOLUME 8.6 fl (7.5-11.1); MONO % 11.1 % (3.8-10.2); NEUT % 70.2 % (42.8-82.8); PLATELET COUNT 362 K/MM3 (134-434); RBC 4.48 M/mm3 (4.00-5.60); WHITE BLOOD COUNT 6.9 K/mm3 (4.0-10.0)
[2019-03-15 08:40] LABS: ALBUMIN 2.4 g/dl (3.4-5.0); ALK PHOS 67 U/L (45-117); ANION GAP 3 MMOL/L (8-16); BILIRUBIN,TOTAL 0.5 mg/dL (0.2-1); BLOOD UREA NITROGEN 26 mg/dL (7-18); CALCIUM 8.9 mg/dL (8.5-10.1); CHLORIDE 109 mmol/L (98-107); CO2 30 mmol/L (21-32); GLUCOSE,RANDOM 86 mg/dL (74-106); MAGNESIUM 2.3 mg/dL (1.8-2.4); POTASSIUM 4.6 mmol/L (3.5-5.1); SGOT/AST 10 U/L (15-37); SGPT/ALT 9 U/L (13-61); SODIUM 142 mmol/L (136-145); TOT PROT 6.6 g/dl (6.4-8.2)
[2019-03-15] MEDS: PANTOPRAZOLE 40 MG TABLET (FP) PO SCH (09:15)
[2019-03-15] MEDS: CARVEDILOL 6.25 MG TABLET (FP) PO SCH (09:15)
[2019-03-15] MEDS: APIXABAN 2.5 MG TABLET PO SCH (09:15)
[2019-03-15] MEDS: FOLIC ACID 1 MG TABLET (FP) PO SCH (09:15)
[2019-03-15] MEDS: ASCORBIC ACID 500 MG TABLET (FP) PO SCH (09:15)
[2019-03-15] MEDS: UMECLIDINIUM/VILANTEROL (ANORO) 62.5/25 MCG INHALER IH SCH (09:15)
[2019-03-15] MEDS: BRIMONIDINE TARTRATE 0.1% OPHTHALMIC 5 ML BOTTLE OU SCH (09:15)
--- NOTE | 2019-03-15 10:50 | PN ---
Progress Note (short form) - Note Progress Note: Chief Complaint: Events noted, notes reviewed, denies any chest pain, reports dyspnea with ambulation History of Present Illness: Seen and examined on telemetry. Events noted, notes reviewed, denies any chest pain, reports dyspnea with ambulation Echocardiography dated 03/14/2019 revealed moderately dilated LV with severe reduction in LVEF, LVEF 30-35%, RV moderately dilated RV, moderate decreased function, moderate LAE, moderate-severe TR - Current Medication List Current Medications Acetaminophen (Tylenol -) 1,000 mg PO BID PRN PRN Reason: PAIN Last Admin: 03/14/19 23:31 Dose: 1,000 mg Apixaban (Eliquis -) 2.5 mg PO BID [facility] Last Admin: 03/15/19 09:15 Dose: 2.5 mg Ascorbic Acid (Vitamin C -) 500 mg PO DAILY [facility] Last Admin: 03/15/19 09:15 Dose: 500 mg Brimonidine Tartrate (Alphagan P 0.1% -) 1 drop OU DAILY [facility] Last Admin: 03/15/19 09:15 Dose: 1 drop Carvedilol (Coreg -) 6.25 mg PO BID [facility] Last Admin: 03/15/19 09:15 Dose: 6.25 mg Folic Acid (Folic Acid -) 1 mg PO DAILY [facility] Last Admin: 03/15/19 09:15 Dose: 1 mg Insulin Aspart (Novolog Vial Sliding Scale -) [facility] Last Admin: 03/15/19 06:18 Dose: Not Given Lisinopril (Prinivil) 5 mg PO DAILY@1300 [facility] Metoclopramide HCl (Reglan -) 10 mg PO [facility] Last Admin: 03/15/19 11:13 Dose: 10 mg Montelukast Sodium (Singulair -) 10 mg PO [facility] Last Admin: 03/14/19 21:43 Dose: 10 mg Pantoprazole Sodium (Protonix -) 40 mg PO DAILY [facility] Last Admin: 03/15/19 09:15 Dose: 40 mg Pregabalin (Lyrica -) 25 mg PO HS [facility] Last Admin: 03/14/19 21:44 Dose: 25 mg Rosuvastatin Calcium (Crestor -) 10 mg PO [facility] Last Admin: 03/14/19 21:43 Dose: 10 mg Umeclidinium/Vilanterol (Anoro Ellipta 62.5-25 Mcg Inh) 1 puff IH DAILY JULIÁN Last Admin: 03/15/19 09:15 Dose: 1 puff - Review of Systems Cardiovascular: As noted above Respiratory: denies: denies: Cough or Sputum Production Gastrointestinal: denies: Nausea, Vomiting, Diarrhea, Constipation or Abdominal Discomfort Musculoskeletal: No Symptoms Reported Endocrine: No Symptoms Reported - Objective Vital Signs: Last Vital Signs Temp Pulse Resp BP Pulse Ox 98.4 F 115 H 17 135/69 98 03/15/19 09:13 03/15/19 09:13 03/15/19 09:13 03/15/19 09:13 03/15/19 09:00 Intake & Output 03/12/19 03/13/19 03/14/19 03/15/19 23:59 23:59 23:59 23:59 Intake Total 240 30 10 Output Total 300 1350 250 Balance -60 -1320 -240 Weight 186 lb Neck: Supple Negative JVD No Bruit Cardiovascular: S1 S2 Irregularly Irregular Respiratory: Diminished Breath Sounds at the Bases Bilaterally Gastrointestinal: Soft Benign Normal Bowel Sounds Ext: Negative Edema Labs: CBC, BMP 03/15/19 05:46 03/15/19 05:46 Hepatic Panel Total Bilirubin 0.5 mg/dL (0.2-1) 03/15/19 05:46 AST 10 U/L (15-37) L 03/15/19 05:46 ALT 9 U/L (13-61) L 03/15/19 05:46 Alkaline Phosphatase 67 U/L (45-117) 03/15/19 05:46 Albumin 2.4 g/dl (3.4-5.0) L 03/15/19 05:46 INR, PTT INR 1.44 (0.83-1.09) H 03/14/19 05:30 Assessment/Plan ASSESSMENT: 1. Hypotension most likely referable to medication effects 2. CAD post CABG angina pectoris 3. Systolic/diastolic LV dysfunction with clinical class 0-I NYHA classification LV failure, compensated/euvolemic 4. Persistent atrial fibrillation [id number] score of 6 on DOAC's/Eliquis, although dose shoild be 5 mg twice daily (Creatinine 1.0 and weight > 60 Kg) 5. Sick sinus syndrome post PPM 6. HTN, Hypertensive cardiomyopathy 7. DM 8. Hypercholestrolemia 9. COPD 10. Acute kidney injury PLAN: 1. Continue Coreg 2. Continue Lisinopril 3. Continue Crestor 4. Continue Eliquis but dose should be 5 mg as outlined above patient to F/U with Dr. Meehan as outpatient/[facility] Susan Jay M.D.
[2019-03-15] MEDS ORDERED: APIXABAN 5 MG TABLET PO SCH (11:43)
[2019-03-15] MEDS ORDERED: LISINOPRIL 5 MG TABLET (FP) PO SCH (13:00)
--- NOTE | 2019-03-15 14:21 | DS ---
Physical Exam: SUBJECTIVE: Patient seen and examined OBJECTIVE: Vital Signs Period Temp Pulse Resp BP Sys/Farmer Pulse Ox Last 24 Hr 98.4 F-99.1 F 89-115 17-20 102-137/63-96 96-98 PHYSICAL EXAM GENERAL: The patient is awake, alert, and fully oriented, in no acute distress. HEAD: Normal with no signs of trauma. EYES: PERRL, extraocular movements intact, sclera anicteric, conjunctiva clear. ENT: nares patent, oropharynx clear without exudates, moist mucous membranes. NECK: Trachea midline, full range of motion, supple. LUNGS: Breath sounds equal, clear to auscultation bilaterally, no wheezes, no crackles, no accessory muscle use. HEART: Regular rate and rhythm, S1, S2 without murmur, rub or gallop. ABDOMEN: Soft, nontender, nondistended, normoactive bowel sounds, no guarding, no rebound, no hepatosplenomegaly, no masses. EXTREMITIES: 2+ pulses, warm, well-perfused, no edema. NEUROLOGICAL:Normal speech, gait not observed. PSYCH: Normal mood, normal affect. SKIN: Warm, dry, normal turgor, no rashes or lesions noted. LABS Laboratory Results - last 24 hr 03/14/19 03/15/19 03/15/19 16:06 05:46 05:46 WBC 6.9 RBC 4.48 Hgb 11.4 L Hct 36.3 MCV 80.9 MCH 25.5 L MCHC 31.5 L RDW 18.0 H Plt Count 362 MPV 8.6 Absolute Neuts (auto) 4.8 Neutrophils % 70.2 Lymphocytes % 16.9 Monocytes % 11.1 H Eosinophils % 0.9 Basophils % 0.9 Nucleated RBC % 0 Sodium 142 Potassium 4.6 Chloride 109 H Carbon Dioxide 30 Anion Gap 3 L BUN 26 H Creatinine 1.0 Creat Clearance w eGFR 70.52 POC Glucometer 123 Random Glucose 86 Calcium 8.9 Magnesium 2.3 Total Bilirubin 0.5 AST 10 L ALT 9 L Alkaline Phosphatase 67 Total Protein 6.6 Albumin 2.4 L 03/15/19 03/15/19 05:52 12:47 WBC RBC Hgb Hct MCV MCH MCHC RDW Plt Count MPV Absolute Neuts (auto) Neutrophils % Lymphocytes % Monocytes % Eosinophils % Basophils % Nucleated RBC % Sodium Potassium Chloride Carbon Dioxide Anion Gap BUN Creatinine Creat Clearance w eGFR POC Glucometer 97 225 Random Glucose Calcium Magnesium Total Bilirubin AST ALT Alkaline Phosphatase Total Protein Albumin HOSPITAL COURSE: Date of Admission:03/13/19 Date of Discharge: 03/15/19 Minutes to complete discharge: 60 Discharge Summary Reason For Visit: ACUTE KIDNEY INJURY, HYPOTENSION Current Active Problems DENI (acute kidney injury) (Acute) Atrial fibrillation (Acute) 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 Previous OHS. Pacemaker. Bibasilar atelectatic changes Reported By: Uri Velez MD [id number]. . Head CT 2018. Impression: No acute bleed or fracture.No CT evidence of acute infarct. Moderate cerebral atrophy and chronic deep white matter periventricular ischemic change. If clinically warranted recommend MRI for further evaluation Reported By: Olegario Claire MD 03/13/19 1305. . REnal sono 03/13/2019. IMPRESSION: 1. Morphologically normal kidneys and urinary bladder with no evidence of hydronephrosis or acute pathology. 2. Large post void residual. Reported By: Fercho Luna MD [id number]. Other Procedures: ECHO 03/14/2019. Impression: no comparison study available. LV moderately dilated. LV systolic fuinction is severely reduced. EF 30-35%. RV moderately dilated and RV systolic function is moderately reduced. LA is moderately dilated. Moderate to severe TR. RA is moderate to severely dilated. Hospital Course: 88 yo M with PMHx of COPD, CHF w/ unclear EF, s/p PPM, Afib on Eliquis, CAD s/p CABG ~ 10 yrs ago at [facility], IDDM c/b gastroparesis & neuropathy, HTN, & prostate issues followed by Dr. Valles for which he receives monthly injections with unclear medication(? zoladex) who presents after feeling that he has been having some feeling of lightheadedness & vision changes over the past 5 days. Per pt & verified by family at bedside pt typically follows at [place], [facility] [address] [facility] for epistaxis which was attributed to eliquis and pt had been discharged to a SNF/ inpt rehab to improve gait/ mobility and then returned home 2 weeks ago where he lives with & has daily PHONE MANAGER services. Pt reported to be back to baseline health until about 4-5 days ago he began reporting some blurry vision, not improved w/ use of his prescription glasses as well as feeling of being lightheaded. Pt had resumed use of all regular medicaitons inlcuding elqiuis BID though did not have any abnormal bruising or bleeding. He otherwise reports no fevers, chills, N/V/D, has variable appetite but no significant weight loss & per family had very good appetite & nutrition intake while at inpt rehab 3 weeks ago. Pt reports taking all his meds this morning prior to being brought by EMS to ED and denies any forgetfullness, focal weakness, sensory loss in extremities, aphasia, dysphagia and no falls, head trauma or pain in eyes though has persistent feeling of blurred vision. Per review of med list pt is on 4 anti HTN meds + torsemide diuretic daily and is on several meds for control of his COPD, attributed to remote hx of smoking tobacco. Pt reports having recieved flu vaccine this year and got Pneumovax in 2010. Per family home glucose has been largely well controlled in past 2 weeks < 200 and at time of interview in ED pt reportedly appears to be at his baseline mentation status. ON arrival to ED via EMS pt was noted to be hypotensive to 60/40's and 70's/40' s on initial ED measurement, given 2 L of IV bolus, not improved to ~ 90/60mmhg is ventricularly paced by PPM and spo2 ~ 88-90% on Room air. Head ct: no acute pathology. blood and urine cultures negative, he is afebrile and wbc stable. Echocardiography dated 03/14/2019 revealed moderately dilated LV with severe reduction in LVEF, LVEF 30-35%, RV moderately dilated RV, moderate decreased function, moderate LAE, moderate-severe TR. In house Cartia, hydralazine and torsemide discontinued Coreg dose halfed and Lisinopril continued at 5mg daily Pt BP remained stable on coreg and Lisinopril. He was discharged home with resumptions of services and cardiology follow up. - Instructions Diet, Activity, Other Instructions: Follow up with cardiology (Dr. Meehan) on March 17 Discharge Instructions for Low Blood Pressure (Hypotension) You have been diagnosed with hypotension. When you have hypotension, your blood pressure is lower than normal. Low blood pressure can make you feel dizzy or faint. This condition is sometimes a side effect of taking certain medicines, including medicines for high blood pressure (hypertension). It can also result from medical conditions such as dehydration. Home care These steps can help manage your condition: Follow your health care providers instructions. Rest in bed and ask for help with daily activities until you feel better. You may need to slowly increase the amount of time you spend sitting or doing light activity. Dont drive while your blood pressure is not controlled. Be careful when you get up from sitting or lying down. Take your time. Sudden movements can cause dizziness or fainting. When you first sit up after lying down, be sure to sit in bed for 30 seconds or so before getting up to walk. Tell your health care provider about the medicines you are taking. Many kinds of medicines trigger low blood pressure. Limit your alcohol intake to no more than 2 drinks a day for men and 1 drink a day for women. Alcohol can dehydrate you even further. It can also interfere with the effectiveness of medicines. Prevent dehydration by drinking plenty of fluids, unless otherwise instructed by your health care provider. Learn to take your own blood pressure. Keep a record of your results. Ask your health care provider which readings mean that you need medical attention. Tell your family members to call an ambulance if you become unconscious. Ask them to learn CPR. Follow-up care Make a follow-up appointment as directed. Call 911 right away if you have: Chest pain Shortness of breath Call your health care provider right away if you have any of the following: Dizziness or fainting spells Black, maroon, or tarry stools Irregular heartbeat Stiff neck Severe upper back pain Diarrhea or vomiting that doesnt go away Inability to eat or drink Burning sensation when you urinate Urine with a strong, unpleasant odor Fainting with exercise Disposition: HOME - Home Medications Comprehensive Discharge Medication List: Ambulatory Orders Ascorbic Acid [Vitamin C] 500 mg PO DAILY 03/13/19 Brimonidine Tartrate [Alphagan P 0.1% -] 1 drop OU HS 03/13/19 Docusate Sodium [Dok] 100 mg PO DAILY PRN 03/13/19 Ferrous Sulfate 325 mg PO BID 03/13/19 Folic Acid 10 gm MC DAILY 03/13/19 Insulin Lispro [Humalog Kwikpen U-100] 0 unit SQ TID PRN 03/13/19 Lisinopril [Prinivil] 5 mg PO DAILY 03/13/19 Montelukast Sodium [Singulair] 10 mg PO HS 03/13/19 Pantoprazole Sodium 40 mg PO DAILY 03/13/19 Pregabalin [Lyrica] 100 mg PO DAILY 03/13/19 Roflumilast [Daliresp -] 500 mcg PO HS 03/13/19 Rosuvastatin [Crestor -] 10 mg PO HS 03/13/19 Sitagliptin Phosphate [Januvia] 50 mg PO DAILY 03/13/19 Umeclidinium [place] [Incruse Ellipta] 62.5 mcg IH DAILY 03/13/19 Acetaminophen [Tylenol .Extra-Strength -] 1,000 mg PO BID PRN tablet 03/15/19 Apixaban [Eliquis -] 5 mg PO BID 7 Days #14 tablet 03/15/19 Ascorbic Acid [Vitamin C -] 500 mg PO DAILY tablet 03/15/19 Brimonidine Tartrate [Alphagan P 0.1% -] 1 drop OU DAILY drops 03/15/19 Carvedilol [Coreg] 6.25 mg PO BID 14 Days #7 tablet MDD 2 tab 03/15/19 Folic Acid - 1 mg PO DAILY tablet 03/15/19 Lisinopril [Prinivil] 5 mg PO DAILY@1300 tablet 03/15/19 Montelukast Na [Singulair -] 10 mg PO HS tablet 03/15/19 Pantoprazole Sodium [Protonix -] 40 mg PO DAILY tablet.ec 03/15/19 Pregabalin [Lyrica -] 25 mg PO HS 7 Days #7 capsule MDD 1 tab 03/15/19 Rosuvastatin [Crestor -] 10 mg PO HS tablet 03/15/19 Umeclidinium Brm/Vilanterol Tr [Anoro Ellipta 62.5-25 Mcg INH] 1 puff IH DAILY inhaler 03/15/19 Problem List - Problems (1) DENI (acute kidney injury) Code(s): N17.9 - ACUTE KIDNEY FAILURE, UNSPECIFIED (2) Atrial fibrillation Code(s): I48.91 - UNSPECIFIED ATRIAL FIBRILLATION Qualifiers: Atrial fibrillation type: chronic Qualified Code(s): I48.2 - Chronic atrial fibrillation (3) Heart failure Code(s): I50.9 - HEART FAILURE, UNSPECIFIED (4) Hypotension Code(s): I95.9 - HYPOTENSION, UNSPECIFIED Qualifiers: Hypotension type: hypotension due to drug Qualified Code(s): I95.2 - Hypotension due to drugs This patient is new to me today: Yes Date on this admission: 03/15/19 Emergency Visit: Yes ED Registration Date: 03/13/19 Care time: The patient presented to the Emergency Department on the above date and was hospitalized for further evaluation of their emergent condition. Critical Care patient: No - Discharge Referral Referred to [facility] Med P.C.: No
[2019-03-15 15:13] VITALS: BP 117/71; PULSE 72; TEMP 98.2
== END 2019-03-15 15:30 | disposition home or self-care (01) | DRG 683 ==
LOC: JER 10:56 → JERBED 13:29 → OBSVTOIN 13:51 → J4W 20:46
PROVIDERS: ADMIT Internal Medicine; ATTEND Nurse Practitioner Family
DX: N17.9 Acute kidney failure, unspecified (principal); I50.22 Chronic systolic (congestive) heart failure; J98.11 Atelectasis; I25.10 Atherosclerotic heart disease of native coronary artery without angina pectoris; Z95.0 Presence of cardiac pacemaker; I48.91 Unspecified atrial fibrillation; I11.0 Hypertensive heart disease with heart failure; Z79.4 Long term (current) use of insulin; I95.9 Hypotension, unspecified; Z79.01 Long term (current) use of anticoagulants; Z95.1 Presence of aortocoronary bypass graft; J44.9 Chronic obstructive pulmonary disease, unspecified; E11.40 Type 2 diabetes mellitus with diabetic neuropathy, unspecified; N40.0 Benign prostatic hyperplasia without lower urinary tract symptoms; E78.5 Hyperlipidemia, unspecified; D50.9 Iron deficiency anemia, unspecified; H53.2 Diplopia; I25.5 Ischemic cardiomyopathy
CPT/HCPCS: 36415; 70450-TC; 71045-TC-FY; 76775-TC; 76856-TC; 80053; 81003; 82565; 82803; 82962; 83605; 83735; 83880; 83935; 84100; 84300; 84436; 84443; 84479; 84484; 85025; 85610; 85730; 87040; 87086; 93005; 93010; 93306-TC; 97116-GP; 97161-GP; 99285-25; G0378; J7030